=== PATIENT | male | born 1970 | race Caucasian/White ===

== ENCOUNTER → 2017-03-04 | Outpatient (CLI) | payer OTHER ==
--- NOTE | 2017-03-04 10:39 | RADRPT ---
EXAM DATE/TIME: 03/04/2017 09:58 [facility] COMPARISON: No previous studies available for comparison. INDICATIONS : Chronic hepatitis. MEDICAL HISTORY : Chronic hepatitis. SURGICAL HISTORY : None. ENCOUNTER: Initial ACUITY: 1 day PAIN SCORE: 2/10 LOCATION: Bilateral upper quadrant MEASUREMENTS: LIVER: 16.4 cm length COMMON DUCT: 4 mm RIGHT KIDNEY: 11.3 x 5.1 x 6.3 cm SPLEEN: 11.8 cm length FINDINGS: LIVER: Normal echotexture without focal lesion or ductal dilatation. COMMON DUCT: No intraluminal mass or stone visualized. GALLBLADDER: Contains no stones, demonstrates no wall thickening or pericholecystic fluid. PANCREAS: The visualized portions are within normal limits. RIGHT KIDNEY: No hydronephrosis, stone or mass. SPLEEN: No focal lesion. CONCLUSION: Unremarkable exam. The liver is within normal limits with no focal lesion or ascites. Jimmy Khalil MD on March 04, 2017 at 10:37 Board Certified Radiologist. This report was verified electronically.
--- NOTE | 2017-03-04 10:46 | RADRPT ---
EXAM DATE/TIME: 03/04/2017 10:26 [facility] COMPARISON: No previous studies available for comparison. INDICATIONS : Short of breath.. Chronic hepatitis. MEDICAL HISTORY : None. SURGICAL HISTORY : None. ENCOUNTER: Initial ACUITY: 2 months PAIN SCORE: 0/10 LOCATION: Bilateral chest FINDINGS: PA and lateral views of the chest demonstrate the lungs to be symmetrically aerated without evidence of mass, infiltrate or effusion. The cardiomediastinal contours are unremarkable. There is a mild to moderate scoliosis with mild degenerative change. A right nipple ring is present. CONCLUSION: No acute disease. Jimmy Khalil MD on March 04, 2017 at 10:44 Board Certified Radiologist. This report was verified electronically.
== END ==
LOC: HRAD 09:28
DX: B18.2 Chronic viral hepatitis C (principal); R05 Cough
CPT/HCPCS: 71020; 76705